=== PATIENT | male | born 1990 | race African-American/Black ===

== ENCOUNTER 2018-08-21 16:47 | Emergency (ER) | payer MEDICAID ==
[~2018-08-21] VITALS: Ht 188 cm; Wt 70.0 kg
[2018-08-21 16:59] VITALS: BP 109/69
== END 2018-08-21 20:40 | disposition left against medical advice (07) ==
LOC: ER 17:00
DX: R22.1 Localized swelling, mass and lump, neck (principal); Z53.21 Procedure and treatment not carried out due to patient leaving prior to being seen by health care provider